=== PATIENT | male | born 1995 | race Caucasian/White ===

== ENCOUNTER 2017-07-17 00:35 | Emergency (ER) | payer OTHER ==
[~2017-07-17] VITALS: Ht 185.4 cm; Wt 88.6 kg
[2017-07-17 00:37] VITALS: BP 165/83; TEMP 98
[2017-07-17] MEDS ORDERED: NORCO 325 MG-51 TAB PO (02:31)
[2017-07-17 02:56] VITALS: PULSE 79
== END 2017-07-17 02:58 | disposition home or self-care (01) ==
LOC: COL.ER 00:35
DX: M23.91 Unspecified internal derangement of right knee (principal)
CPT/HCPCS: J1885

== ENCOUNTER 2018-03-24 09:28 | Emergency (ER) | payer OTHER ==
[~2018-03-24] VITALS: Ht 185.4 cm; Wt 86.8 kg
[~2018-03-24 09:28] MED LIST: NORCO 325 MG-51 TAB PO
[2018-03-24 09:33] VITALS: BP 134/75
[2018-03-24 10:46] VITALS: PULSE 76
== END 2018-03-24 10:47 | disposition home or self-care (01) ==
LOC: COL.ER 09:28
DX: S90.32XA Contusion of left foot, initial encounter (principal); W19.XXXA Unspecified fall, initial encounter

== ENCOUNTER 2018-07-15 17:29 | Emergency (ER) | payer OTHER ==
[~2018-07-15] VITALS: Ht 185.4 cm; Wt 86.4 kg
[2018-07-15 17:30] VITALS: TEMP 98
[2018-07-15 17:52] LABS: BASO # 0.1 (0.0-0.2); BASO % 0.8 % (0.0-2.0); EOS # 0.2 (0.0-0.7); EOS % 2.3 % (0-4.0); GRAN # 3.2 (1.4-6.5); GRAN % 47.4 % (42.2-75.2); LYMPH # 2.7 (1.2-3.4); LYMPH % 39.8 % (20.0-51.0); MEAN CELL VOLUME 91 fl (80.0-100.0); MEAN CORPUSCULAR HEMOGLOBIN 31 pg (27.0-31.0); MEAN CORPUSCULAR HGB CONC 34 g/dl (33.0-37.0); MEAN PLATELET VOLUME 9.6 fl (7.4-10.4); MONO # 0.6 (0.1-0.6); MONO % 8.6 % (1.7-9.3); PLATELET COUNT 274 K/mm3 (130-400); RED BLOOD COUNT 4.83 M/mm3 (4.20-5.60); REDCELL DISTRIBUTION WIDTH-CV 12.9 % (11.5-14.5)
[2018-07-15 17:59] LABS: ACETAMINOPHEN < 10 ug/mL (10-30); ALANINE AMINOTRANSFERASE 56 U/L (21-72); ALBUMIN 4.9 gm/dL (3.5-5.0); ALKALINE PHOSPHATASE 95 U/L (50-136); ANION GAP 18 mmol/L (7-16); AST,SGOT 46 U/L (15-37); BILIRUBIN,TOTAL 0.3 mg/dL (0.0-1.0); BLOOD UREA NITROGEN 16 mg/dL (9-20); CALCIUM 9.2 mg/dL (8.4-10.2); CARBON DIOXIDE 19 mmol/L (22-30); CHLORIDE 105 mmol/L (98-107); GLUCOSE 122 mg/dL (74-106); POTASSIUM 3.9 mmol/L (3.4-5.0); SALICYLATE < 1.0 mg/dL; SODIUM 141 mmol/L (137-145); TOTAL PROTEIN 8.3 gm/dL (6.4-8.2)
[2018-07-15 18:09] LABS: ALCOHOL(ethanol),MEDICAL 417 mg/dL
[2018-07-15 18:33] LABS: TRICYCLIC ANTIDEPRESS URINE NEGATIVE
[2018-07-15 22:11] VITALS: BP 128/52; PULSE 78
== END 2018-07-15 22:05 | disposition home or self-care (01) ==
LOC: COL.ER 17:29
PROVIDERS: Emergency Medicine
DX: F10.129 Alcohol abuse with intoxication, unspecified (principal); F15.90 Other stimulant use, unspecified, uncomplicated; F17.200 Nicotine dependence, unspecified, uncomplicated; Y90.8 Blood alcohol level of 240 mg/100 ml or more
CPT/HCPCS: J2405; J7030